=== PATIENT | female | born 1985 | race Caucasian/White ===

== ENCOUNTER 2024-01-06 03:19 | Emergency (ER) | payer OTHER ==
[~2024-01-06] VITALS: Ht 157.5 cm; Wt 50.0 kg
[2024-01-06 03:23] VITALS: BP 107/75; PULSE 87; RESP 18; TEMP 97.4; O2SAT 97
[2024-01-06] MEDS: ONDANSETRON 4MG ODT PO ONE (03:51)
[2024-01-06] MEDS: GABAPENTIN 300MG CAPSULE PO ONE (04:03)
== END 2024-01-06 06:17 | disposition home or self-care (01) ==
LOC: ER 03:19
DX: R56.9 Unspecified convulsions (principal); F41.9 Anxiety disorder, unspecified; Z91.148 Patient's other noncompliance with medication regimen for other reason; Z00.00 Encounter for general adult medical examination without abnormal findings
CPT/HCPCS: 99283; Q0162

== ENCOUNTER 2024-01-06 06:21 | Emergency (ER) | payer OTHER ==
[~2024-01-06] VITALS: Ht 154.9 cm; Wt 57.0 kg
[2024-01-06 06:31] VITALS: BP 109/73; PULSE 94; RESP 18; TEMP 98.4; O2SAT 100
[2024-01-06 06:54] LABS: BASOPHILS % 0.7 % (0.0-2.0); DIFFERENTIAL COMMENT 0; HEMATOCRIT. 41.3 % (36.0-48.0); HEMOGLOBIN. 13.9 g/dL (12.0-16.0); LYMPHOCYTES % 21.3 % (20.0-50.0); MEAN CORPUSCULAR HEMOGLOBIN 33.8 pg (28.0-32.0); MEAN CORPUSCULAR HGB CONC 33.6 g/dL (31.0-37.0); MEAN CORPUSCULAR VOLUME 100.6 fL (81.0-99.0); MONOCYTES % 7.3 % (2.0-8.0); NEUTROPHILS % 69.7 % (40.0-76.0); PLATELET 289 x1000/uL (130-400); RED BLOOD CELL COUNT 4.11 mill/uL (4.2-5.4); RED CELL DISTRIBUTION WIDTH 14.2 % (11.6-14.6); WHITE BLOOD COUNT 5.8 x1000/uL (4.5-11.0)
[2024-01-06 07:02] LABS: CHLORIDE 108 mEq/L (98-107); POTASSIUM 3.6 mEq/L (3.5-5.1); SODIUM 142 mEq/L (136-145)
[2024-01-06 07:03] LABS: CALCIUM 8.9 mg/dL (8.7-10.4); CARBON DIOXIDE 26 mEq/L (21-32)
[2024-01-06 07:08] LABS: CREATININE 0.7 mg/dL (0.6-1.0); GLUCOSE 82 mg/dL (70-105); UREA NITROGEN BLOOD 11 mg/dL (9-23)
[2024-01-06] MEDS: ONDANSETRON HCL 4MG/2ML INJ IV STA (07:10)
[2024-01-06] MEDS: SODIUM CHLORIDE 0.9% 1,000 ML IV ONE (07:10)
[2024-01-06 07:11] LABS: HCG SCREEN NEGATIVE; TROPONIN I HIGH SENSITIVITY < 4 ng/L (3.0-34)
== END 2024-01-06 13:21 | disposition left against medical advice (07) ==
LOC: ER 06:34
DX: R42 Dizziness and giddiness (principal); F41.9 Anxiety disorder, unspecified; Z86.59 Personal history of other mental and behavioral disorders
CPT/HCPCS: 99285; 96374; 96361; 70450; 80048; 84703; 85025; 84484; 36415; 93005; J2405; J7030